=== PATIENT | male | born 1935 | race Caucasian/White ===

== ENCOUNTER 2017-12-23 15:57 | Observation (INO) | payer MEDICARE, BC ==
[~2017-12-23] VITALS: Ht 180.3 cm; Wt 99.0 kg
[2017-12-23] MEDS ORDERED: ONDANSETRON HCL INJ 2 MG/ML VIAL IV STA (16:40)
[2017-12-23] MEDS ORDERED: SODIUM CHLORIDE 0.9% 1000ML 1,000 ML IV STA (16:40)
[2017-12-23] MEDS ORDERED: MECLIZINE HCL 12.5 MG TAB PO ONE (16:45)
--- NOTE | 2017-12-23 17:34 | Diagnostic Imaging Report ---
PROCEDURE: A single AP view of the chest. COMPARISON: None. INDICATIONS: DIZZINESS FINDINGS: Lines/tubes: None. Lungs: The lungs are well inflated and clear. There is no evidence of pneumonia or pulmonary edema. Pleura: There is no pleural effusion or pneumothorax. Heart and mediastinum: The heart and the mediastinum are unremarkable. Bones: No acute bony abnormality. IMPRESSION: No acute cardiopulmonary disease. Dictated by: Omar Villa M.D. on 12/23/2017 at 17:33 Electronically approved by: Omar Villa M.D. on 12/23/2017 at 17:33
--- NOTE | 2017-12-23 17:37 | Diagnostic Imaging Report ---
History:Vomiting, nausea Comparison studies:None Technique: Axial images were obtained from the skull base to the vertex. Coronal and sagittal images reconstructed from the axial data. Intravenous contrast: None Findings: Scalp/skull: No abnormalities. Extra-axial spaces: No masses. No fluid collections. Brain sulci: Mildly prominent. Ventricles: Mild compensatory dilatation. No hydrocephalus. Parenchyma: A few bilateral hypodensities in the supratentorial white matter are small vessel ischemic changes. No masses, hemorrhage, acute or chronic cortical vascular insults. Sellar/suprasellar region: No abnormalities. Craniocervical junction: Patent foramen magnum. No Chiari one malformation. Incidental findings: Atherosclerotic calcifications in the carotid siphons Bilateral punctate senile calcifications in the globes. Impression: No acute abnormalities. Chronic findings: 1. Mild generalized volume loss. 2. Mild supratentorial white matter small vessel ischemic changes. Preliminary report provided by Dr. uLis Thakur Final report by Dr Roper on 12/23/2014 at 2040 hours. Signed by: Dr. Jarrell Roper M.D. on 12/23/2017 8:42 PM
[2017-12-23 18:51] LABS: BASOPHILS # (AUTO) 0.1 (0.0-0.1); BASOPHILS % 0.6 % (0.0-1.0); EOSINOPHILS # (AUTO) 0.1 (0.0-0.4); EOSINOPHILS % 0.7 % (0.0-6.0); HEMATOCRIT 44.5 % (38.2-49.6); HEMOGLOBIN 14.6 g/dL (14.0-18.0); LYMPHOCYTES % 11.3 % (18.0-39.1); MEAN CORPUSCULAR HEMOGLOBIN 31.7 pg (28-32); MEAN CORPUSCULAR HGB CONC 32.8 g/dL (31-35); MEAN CORPUSCULAR VOLUME 96.7 fL (81-99); MONOCYTES # (AUTO) 0.7 (0.2-0.8); MONOCYTES % 8.1 % (4.4-11.3); NEUTROPHILS # (AUTO) 6.9 (2.1-6.9); NEUTROPHILS % 78.7 % (38.7-80.0); PLATELET COUNT 163 x10e3/uL (140-360)
[2017-12-23 18:58] LABS: INR 1.16; PROTHROMBIN TIME 13.9 seconds (11.9-14.5)
[2017-12-23 19:05] LABS: ALANINE AMINOTRANSFERASE 12 IU/L (0-55); ALBUMIN 3.7 g/dL (3.5-5.0); ALKALINE PHOSPHATASE 73 IU/L (40-150); ANION GAP 14.5 mmol/L (8-16); BLOOD UREA NITROGEN 13 mg/dL (7-26); BUN/CREATININE RATIO 15 (6-25); CALCIUM 8.9 mg/dL (8.4-10.2); CARBON DIOXIDE 25 mmol/L (22-29); CHLORIDE 106 mmol/L (98-107); CREATINE KINASE 84 IU/L (30-200); CREATININE, SERUM 0.87 mg/dL (0.72-1.25); EST GLOMERULAR FILTRATION RATE > 60 ML/MIN (60-); GLUCOSE 112 mg/dL (74-118); POTASSIUM 3.5 mmol/L (3.5-5.1); SODIUM 142 mmol/L (136-145)
[2017-12-23 19:26] LABS: BILIRUBIN,URINE NEGATIVE (NEGATIVE); CLARITY,URINE CLEAR (CLEAR); COLOR,URINE YELLOW (YELLOW); KETONES,URINE 1+ (NEGATIVE); LEUKOCYTE ESTERASE ,URINE NEGATIVE (NEGATIVE); NITRITE,URINE NEGATIVE (NEGATIVE); PROTEIN,URINE DIPSTICK NEGATIVE (NEGATIVE); URINE UROBILINOGEN 0.2 mg/dL (0.2 - 1)
[2017-12-23] MEDS: SODIUM CHLORIDE 0.9% 1000ML 1,000 ML IV SCH (19:26)
[2017-12-23] MEDS ORDERED: ZYRTEC10 M3 PO (19:27)
--- OUTSIDE RECORDS SUMMARY | 2017-12-23 19:49 | XMS REPORT ---
Author Author [facility] Address Unknown Phone Unavailable Care Team Providers Care Pain Coordinator Name Role Phone JUSTYN SHAFFER Unavailable Unavailable Problems This patient has no known problems. Allergies, Adverse Reactions, Alerts This patient has no known allergies or adverse reactions. Medications This patient has no known medications. Results Test Description Test Time Test Comments Text Results Atomic Results Result Comments CHEST SINGLE (PORTABLE) [place] [address] Patient Name: SRI SALGADO MR #: [id number] : 1935 Age/Sex: 82/M Req #: [id number] Adm Physician: Ordered by: ALEXIS ROTHMAN INSTRUMENT INSPECTOR Report #: [id number] Location: ER Room/Bed: Procedure: [id number] DX/CHEST SINGLE (PORTABLE) Exam Date: 12/23/17 Exam Time: 1650 REPORT STATUS: Signed PROCEDURE: A single AP view of the chest. COMPARISON: None. INDICATIONS: DIZZINESS FINDINGS: Lines/tubes: None. Lungs: The lungs are well inflated and clear. There is no evidence of pneumonia or pulmonary edema. Pleura: There is no pleural effusion or pneumothorax. Heart and mediastinum: The heart and the mediastinum are unremarkable. Bones: No acute bony abnormality. IMPRESSION: No acute cardiopulmonary disease. Dictated by: Omar Delgadillo M.D. on 12/23/2017 at 17:33 Electronically approved by: Omar Delgadillo M.D. on 12/23/2017 at 17:33 Dictated By: OMAR DELGADILLO MD 173 Transcribed By: KYLE on 12/23/171732 COPY TO: ALEXIS ROTHMAN NP
[2017-12-23 20:08] VITALS: BP 177/79
[2017-12-23 20:12] LABS: EPITHELIAL CELLS,URINE RARE /LPF
[2017-12-23 20:13] LABS: MUCUS,URINE FEW (RARE); RBC,URINE 0-5 /HPF (0-5); WBC,URINE (MAN) 0-5 /HPF (0-5)
[2017-12-23 20:30] VITALS: BP 177/79
[2017-12-24] VITALS (8 sets, daily range): BP systolic 122–147; BP diastolic 65–76
[2017-12-24] MEDS: SODIUM CHLORIDE 0.9% 1000ML 1,000 ML IV SCH ×2 (04:04→11:03)
--- NOTE | 2017-12-24 08:03 | History and Physical ---
PRIMARY CARE PHYSICIAN: Dr. Skinner CHIEF COMPLAINT: Dizziness and tingling in fingers. HISTORY OF PRESENT ILLNESS: An 82-year-old man with no medical history, now waking up at 2 a.m. on Thursday morning with symptoms of tingling in his right hand fingers and right foot toes. He got out of bed. While walking, he had to hold onto the wall for balance. Therefore, he came to the hospital for further evaluation and management. Denies any history of heart attack, stroke, or any other medical problems. Patient does admit that the room was spinning when his opened his eyes, but when he closes his eyes, it resolved. PAST MEDICAL HISTORY: None. PAST SURGICAL HISTORY: None. ALLERGIES: PER ELECTRONIC MEDICAL RECORD. FAMILY HISTORY/SOCIAL HISTORY: Patient is . He has 2 children. No alcohol, illicits, or cigarettes. MEDICATIONS: Per electronic medical record. REVIEW OF SYSTEMS: Denies any dizziness, chest pain. PHYSICAL EXAMINATION: VITAL SIGNS: Have been reviewed. GENERAL APPEARANCE: Tired-appearing man resting in bed. HEENT: Anicteric. Pupils respond to light. No oral lesions. CARDIOVASCULAR: Normal S1 and S2. LUNGS: Moderate breath sounds. ABDOMEN: Soft, nontender, nondistended. EXTREMITIES: No edema or calf tenderness. NEUROLOGICAL: He is alert and oriented x3. He moves all extremities. His cranial nerves II through XII are intact. SKIN: Dry. PSYCHIATRIC: Normal affect. LABS: Reviewed. MEDICATIONS: Reviewed. ASSESSMENT AND PLAN: This is an 82-year-old man. 1. Dizziness. This is vertigo related based on his description. Will continue meclizine benign paroxysmal positional vertigo. 2. Abnormal electrocardiogram. Patient did have some tingling in his hand and foot, and he has abnormal electrocardiogram with T-wave inversions. Will obtain 2-dimensional echocardiogram and consult cardiology. Will also obtain a thyroid-stimulating hormone. 3. Elevated blood pressure. He states that he does not have a history of hypertension, but blood pressure has been elevated here. We may need to treat. 4. Overweight state. His body mass index is 29.3. Will obtain a lipid panel. His glucose was 112, which was normal. 5. Allergic rhinitis. Continue loratadine. 6. Prophylaxis. Will use Lovenox and Pepcid. 7. Disposition. Follow up cardiology recommendation. May benefit from an magnetic resonance imaging of the brain, but will reassess patient later today, and will determine if this is appropriate. Job#: [id number]
[2017-12-24] MEDS: FAMOTIDINE 20 MG TAB PO SCH ×2 (08:19→16:16)
[2017-12-24] MEDS: LORATADINE 10 MG TAB PO SCH (08:19)
[2017-12-24 09:27] LABS: CHOL/HDL RATIO 3.5 (3.9-4.7)
--- NOTE | 2017-12-24 11:54 | Consultation ---
DATE OF CONSULTATION: December 24, 2017 ATTENDING PHYSICIAN: Dr. Christianson Thank you so much for asking me to see this nice man in consultation. 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 Had some dizziness as well and initially had some nausea and vomiting which has resolved; however, the finger and toe symptoms persist. PAST MEDICAL HISTORY: Relatively insignificant. Patient has been amazingly healthy throughout his life. 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 SOCIAL HISTORY: Does not smoke or drink. FAMILY HISTORY: Negative. REVIEW OF SYSTEMS: CARDIAC: Patient reports he did have a cardiac evaluation around 2009 that was unrevealing including a stress test. Previous community screening in July 2016 showed left bundle-branch block present at the time with some carotid plaquing. She had no chest pain or palpitations or ankle swelling. PHYSICAL EXAMINATION: GENERAL: A pleasant alert white man who is comfortable. He reports he still has tingling of his right fingers and toes. HEENT: Unremarkable. NECK: No jugular venous distention. No bruits. HEART: S1, S2 are equal. A faint 1/6 systolic murmur to the left sternal border. LUNGS: Clear. ABDOMEN: Protuberant. Normal bowel sounds. EXTREMITIES: No cyanosis, clubbing, or edema. Distal pulses are all 2+/2+. LABORATORY STUDIES: EKG shows sinus rhythm with left bundle-branch block. Sed rate is 15 with normal being 13. His BNP is 265, cholesterol 159, HDL 45, and LDL 97. CAT scan of the head shows some wasting. Chest x-ray is relatively unremarkable. ASSESSMENT 1. Neurologic symptoms of the fingers and toes, etiology not clear. 2. Left bundle-branch block present at least since July of 2016. 3. Abnormal BNP with faint murmur. PLAN: We will check carotid Doppler scan, echocardiogram, and Lexiscan Myoview. We will follow him closely with you. Thank you for asking to see him in consultation. Job#: [id number] SAK
[2017-12-24] MEDS ORDERED: CYCLOBENZAPRINE HCL 10 MG TAB PO SCH (14:00)
[2017-12-24] MEDS: MECLIZINE HCL 12.5 MG TAB PO SCH ×2 (14:25→21:50)
[2017-12-24] MEDS: ENOXAPARIN SOD INJ 40 MG/0.4 ML SYR SC SCH (16:16)
[2017-12-25 00:44] VITALS: BP 150/70
[2017-12-25 04:00] VITALS: BP 139/73
[2017-12-25] MEDS: MECLIZINE HCL 12.5 MG TAB PO SCH ×3 (06:00→21:02)
[2017-12-25] MEDS: FAMOTIDINE 20 MG TAB PO SCH ×2 (07:30→17:30)
[2017-12-25 07:55] VITALS: BP 145/83
[2017-12-25 08:04] LABS: BASOPHILS # (AUTO) 0.1 (0.0-0.1); BASOPHILS % 1.1 % (0.0-1.0); EOSINOPHILS # (AUTO) 0.3 (0.0-0.4); EOSINOPHILS % 4.9 % (0.0-6.0); HEMATOCRIT 43.9 % (38.2-49.6); HEMOGLOBIN 14.4 g/dL (14.0-18.0); LYMPHOCYTES # (AUTO) 1.5 (1.0-3.2); MEAN CORPUSCULAR HEMOGLOBIN 31.7 pg (28-32); MEAN CORPUSCULAR HGB CONC 32.8 g/dL (31-35); MEAN CORPUSCULAR VOLUME 96.7 fL (81-99); MONOCYTES # (AUTO) 0.7 (0.2-0.8); MONOCYTES % 10.2 % (4.4-11.3); NEUTROPHILS # (AUTO) 3.8 (2.1-6.9); NEUTROPHILS % 59.6 % (38.7-80.0); PLATELET COUNT 148 x10e3/uL (140-360); RED BLOOD COUNT 4.54 x10e6/uL (4.3-5.7); RED CELL DISTRIBUTION WIDTH 15.5 % (11.7-14.4)
[2017-12-25 08:26] LABS: ANION GAP 10.6 mmol/L (8-16); BLOOD UREA NITROGEN 12 mg/dL (7-26); BUN/CREATININE RATIO 13 (6-25); CARBON DIOXIDE 26 mmol/L (22-29); CHLORIDE 109 mmol/L (98-107); CREATININE, SERUM 0.93 mg/dL (0.72-1.25); EST GLOMERULAR FILTRATION RATE > 60 ML/MIN (60-); GLUCOSE 92 mg/dL (74-118); POTASSIUM 3.6 mmol/L (3.5-5.1); SODIUM 142 mmol/L (136-145)
[2017-12-25] MEDS ORDERED: REGADENOSON 0.4 MG/5 ML SYR IV ONE (08:43)
[2017-12-25] MEDS: LORATADINE 10 MG TAB PO SCH (09:00)
[2017-12-25 09:27] VITALS: BP 145/83
--- NOTE | 2017-12-25 13:10 | Diagnostic Imaging Report ---
EXAMINATION: MRI of the brain without contrast. HISTORY: Dizziness, ataxia, right hand and leg numbness, difficulty swallowing COMPARISON: Head CT on 12/23/2017 TECHNIQUE: Sagittal T2; axial DWI, T2, FLAIR, T1-IR, T2 gradient echo; coronal FLAIR. IMAGE QUALITY: Adequate. FINDINGS: Parenchyma: 1. Linear DWI, T2 and FLAIR hyperintense line along the midline at the bulbomedullary junction likely corresponds to acute ischemia. 2. Few scattered white matter T2 and FLAIR hyperintense foci, most likely nonspecific chronic microvascular ischemic changes. 3. No mass, hemorrhage, acute or chronic infarcts. Skull: Unremarkable. Vessels: Expected flow voids present in the major arteries and dural sinuses. Extra-axial spaces: No abnormal signal intensity or mass effect. Brain volume: Within normal limits for age. Ventricles: No hydrocephalus or displacement. Foramen magnum: Unremarkable. Sella: Unremarkable. Paranasal / mastoid sinuses: No significant inflammatory disease. IMPRESSION: 1. 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 2. Mild chronic microvascular ischemic changes. Signed by: Dr. Lawanda Pickens M.D. on 12/25/2017 1:07 PM
--- NOTE | 2017-12-25 16:11 | Consultation ---
DATE OF CONSULTATION: December 25, 2017, about 3 p.m. NEUROLOGICAL CONSULTATION A patient of Dr. Bola Christianson. REASON FOR CONSULTATION: Episode of dizziness. HISTORY OF PRESENT ILLNESS: This 82-year-old male has been in excellent health and taking no medication, never been hospitalized. Last Thursday night he had an episode of sudden spinning sensation associated with loss of balance, nausea, vomiting. He describes some difficulty focusing, numbness of the fingers of the right hand and the toes of the right foot. The following day he was still having some dizziness and spinning but not as much as he had at the beginning. He still had some trouble, walking in little steps according to his . There was no diplopia. There was no ringing of the ears. The following day on Thursday, he had an episode of difficulty swallowing, reason for which they brought him to the hospital to the emergency room. At the present time, the patient is doing better. He is still having a little unsteady gait. He denies any headaches. He denies any chest pain. No palpitation. No facial paresthesia. No paresthesia of the lips, tongue. No focal weakness or focal paresthesia. He said it was just the fingers of the right hand and the toes on the right foot. The patient has been seen by parking enforcement officer. PAST HISTORY: Unremarkable. SURGICAL HISTORY: Unremarkable. SOCIAL HISTORY: He is . He does not smoke or drink. He has been at home with no medication. REVIEW OF SYSTEMS: At the time no chest pain, no headache, no dizziness, no trouble swallowing. GENERAL PHYSICAL EXAMINATION VITAL SIGNS: Blood pressure today was 145/83. Pulse was 64. He was afebrile. LUNGS: Clear to auscultation. HEART: Regular sinus rhythm. No murmur. ABDOMEN: Soft. No organomegaly. No tenderness. MUSCULOSKELETAL: Lower extremities no edema, no cyanosis, no clubbing. No back or neck pain. NEUROLOGIC Mental status: He is alert, cooperative. Speech is clear. No dysarthria. No dysphagia. He is oriented x3. Cranial nerves: Pupils were both equal and reactive. External ocular movements were full. Visual field on confrontation was grossly normal. Facial sensation was normal. No facial weakness. Tongue protrudes midline. Palatal movements normal. Motor power: He is able to elevate arms and legs against gravity without any difficulty. Upper extremity muscle strength: Abduction of the arms 5/5. Flexion and extension of the arms 5/5. Dorsiflexion of both wrists 5/5. Finger extension 5/5 bilaterally. Hand belt machine operator 5/5 bilaterally. Lower extremity: Straight raising leg 70 degrees without any difficulty. Flexion of the hips 5/5, flexion and extension of the knees 5/5, dorsiflexion of the ankles 5/5. Deep tendon reflexes: Triceps, biceps, radials 1+. Knee jerks 1+. Ankle jerks were absent bilaterally. Plantar stimulation is down bilaterally. Coordination: [id number] has terminal unsteadiness in the right side and normal on the left side. Gait: Broad-based, unsteady. Romberg test positive. HEAD: Normocephalic. NECK: Supple. Carotid pulsations were present bilaterally. There were no bruits. LABORATORY WORKUP: CBC shows a white count of 6300 with a hemoglobin 14.4, hematocrit 43.9, platelets 148,000. Chemistry: Sodium, potassium, chloride were all normal. BUN was 12, the creatinine 0.93. Liver enzymes are normal. Lipid profile is normal. TSH is normal. Urinalysis is negative. A CT scan of the brain done in the emergency room did not show any acute pathology. There was some chronic generalized volume loss and a small amount of white matter disease bilaterally. MRI of the brain shows an acute small stroke in the midline at the bulbo-medullary junction. Carotid Doppler has been done. There is chronic flow impairment. Echocardiogram report is pending. RECOMMENDATION: CT angiogram of the neck and head. The patient and his were explained in detail about this is not a TIA; this is an actual acute stroke which is small in the area which causes vertigo, paresthesia and loss of balance. As soon as we have the CT angiogram, then we will discuss with the patient and the family and the attending physician for further options. In the meantime, continue with Lovenox and control of the blood pressure. Job#: [id number] ROXANN
[2017-12-25] MEDS: ENOXAPARIN SOD INJ 40 MG/0.4 ML SYR SC SCH (17:30)
--- NOTE | 2017-12-25 17:50 | Diagnostic Imaging Report ---
EXAMINATION: CT angiogram of the [place] and neck with contrast CLINICAL HISTORY: Dizziness , imbalance, stroke. COMPARISON: None available TECHNIQUE: The head and neck was scanned utilizing a multidetector helical scanner from the thoracic inlet to the vertex after the I.V contrast administration of 100 mL of Omnipaque 300 mg . Multiplanar sagittal and coronal reconstructions were performed as well. FINDINGS: The are no areas of abnormal density or enhancement in the brain. There is no mass, hemorrhage or extra-axial fluid collection. The CSF containing spaces are normal in size, position and configuration. CT ANGIOGRAM OF THE [place]: The internal carotid artery segments as well as the middle cerebral and anterior cerebral arteries are normal in caliber. The vertebro-basilar circulation is normal. No vascular malformation or aneurysmal dilatation is seen. The draining venous structures are normal and patent. Anatomic variation: Anterior Communicating Artery: Patent Posterior Communicating Arteries: Not visualized Vertebral arteries: Codominant CT ANGIOGRAM OF THE NECK: If present, stenosis of the carotid bulbs is measured based on NASCET criteria i.e area of maximum stenosis compared to the cervical ICA distal to the bulb. The origin of the vessels is patent bilaterally. Carotid bulbs: Minimal calcified atherosclerotic plaque in the left carotid bifurcation and carotid bulb without associated stenoses(0%). Right Carotid Artery: The common carotid, internal and external carotid arteries at the level of the neck are normal in caliber, and patent, no evidence of stenoses. Left carotid artery: The common carotid, internal and external carotid arteries at the level of the neck are normal in caliber, and patent, no evidence of stenoses. Vertebral Arteries: Both are normal in morphology and caliber. Both are codominant. No significant stenosis is seen. IMPRESSION: Unremarkable CT angiogram of the [place] and neck. Signed by: Dr. Lawanda Pickens M.D. on 12/25/2017 5:47 PM
--- NOTE | 2017-12-25 17:50 | Diagnostic Imaging Report ---
EXAMINATION: CT angiogram of the [place] and neck with contrast CLINICAL HISTORY: Dizziness , imbalance, stroke. COMPARISON: None available TECHNIQUE: The head and neck was scanned utilizing a multidetector helical scanner from the thoracic inlet to the vertex after the I.V contrast administration of 100 mL of Omnipaque 300 mg . Multiplanar sagittal and coronal reconstructions were performed as well. FINDINGS: The are no areas of abnormal density or enhancement in the brain. There is no mass, hemorrhage or extra-axial fluid collection. The CSF containing spaces are normal in size, position and configuration. CT ANGIOGRAM OF THE [place]: The internal carotid artery segments as well as the middle cerebral and anterior cerebral arteries are normal in caliber. The vertebro-basilar circulation is normal. No vascular malformation or aneurysmal dilatation is seen. The draining venous structures are normal and patent. Anatomic variation: Anterior Communicating Artery: Patent Posterior Communicating Arteries: Not visualized Vertebral arteries: Codominant CT ANGIOGRAM OF THE NECK: If present, stenosis of the carotid bulbs is measured based on NASCET criteria i.e area of maximum stenosis compared to the cervical ICA distal to the bulb. The origin of the vessels is patent bilaterally. Carotid bulbs: Minimal calcified atherosclerotic plaque in the left carotid bifurcation and carotid bulb without associated stenoses(0%). Right Carotid Artery: The common carotid, internal and external carotid arteries at the level of the neck are normal in caliber, and patent, no evidence of stenoses. Left carotid artery: The common carotid, internal and external carotid arteries at the level of the neck are normal in caliber, and patent, no evidence of stenoses. Vertebral Arteries: Both are normal in morphology and caliber. Both are codominant. No significant stenosis is seen. IMPRESSION: Unremarkable CT angiogram of the [place] and neck. Signed by: Dr. Lawanda Pickens M.D. on 12/25/2017 5:47 PM
[2017-12-25 20:00] VITALS: BP 158/78
--- NOTE | 2017-12-25 20:16 | Cardiology Report ---
DATE OF STUDY: December 25, 2017 LEXISCAN MYOVIEW The patient had resting perfusion images after an injection of 11 mCi of technetium 99 and Myoview. Later due to an inability to exercise, the patient was given 0.4 mg of Lexiscan intravenously. Shortly afterwards, 31.9 mCi of technetium 99 and Myoview. Perfusion images were taken by rotational tomography. Comparison of resting and Lexiscan stress images show no significant evidence of any perfusion defect. Uptake is smooth and regular. Additionally, gated wall motion images were obtained and calculated ejection fraction, although borderline of 47% suggests normal left ventricular function. FINAL IMPRESSION 1. Normal Lexiscan Myoview perfusion. 2. Normal left ventricular function with calculated ejection fraction of 47%. Job#: [id number] CY
[2017-12-25 21:02] VITALS: BP 158/78
[2017-12-25] MEDS ORDERED: IOPAMIDOL 370 MG/ML 200 ML INFUS..BTL INJ ONE (22:34)
[2017-12-25] MEDS ORDERED: SODIUM CHLORIDE 0.9% 50ML 50 ML ONE (22:34)
[2017-12-26] VITALS (7 sets, daily range): BP systolic 139–164; BP diastolic 65–94
[2017-12-26] MEDS: MECLIZINE HCL 12.5 MG TAB PO SCH ×2 (06:12→14:00)
[2017-12-26 07:18] LABS: BASOPHILS # (AUTO) 0.1 (0.0-0.1); EOSINOPHILS # (AUTO) 0.4 (0.0-0.4); EOSINOPHILS % 5.8 % (0.0-6.0); HEMATOCRIT 41.7 % (38.2-49.6); HEMOGLOBIN 13.9 g/dL (14.0-18.0); LYMPHOCYTES # (AUTO) 1.6 (1.0-3.2); LYMPHOCYTES % 25.2 % (18.0-39.1); MEAN CORPUSCULAR HEMOGLOBIN 31.9 pg (28-32); MEAN CORPUSCULAR HGB CONC 33.3 g/dL (31-35); MEAN CORPUSCULAR VOLUME 95.6 fL (81-99); MONOCYTES # (AUTO) 0.5 (0.2-0.8); MONOCYTES % 8.7 % (4.4-11.3); NEUTROPHILS # (AUTO) 3.6 (2.1-6.9); PLATELET COUNT 149 x10e3/uL (140-360); RED BLOOD COUNT 4.36 x10e6/uL (4.3-5.7); RED CELL DISTRIBUTION WIDTH 15.1 % (11.7-14.4)
[2017-12-26] MEDS ORDERED: HYDRALAZINE HCL 20 MG/ML VIAL IV PRN (08:00)
[2017-12-26 08:01] LABS: ANION GAP 12.3 mmol/L (8-16); BLOOD UREA NITROGEN 11 mg/dL (7-26); BUN/CREATININE RATIO 13 (6-25); CALCIUM 8.3 mg/dL (8.4-10.2); CARBON DIOXIDE 26 mmol/L (22-29); CHLORIDE 108 mmol/L (98-107); CREATININE, SERUM 0.88 mg/dL (0.72-1.25); EST GLOMERULAR FILTRATION RATE > 60 ML/MIN (60-); GLUCOSE 85 mg/dL (74-118); POTASSIUM 3.3 mmol/L (3.5-5.1); SODIUM 143 mmol/L (136-145)
[2017-12-26] MEDS ORDERED: POTASSIUM CHLORIDE 10 MEQ TABCR ONE (08:22)
[2017-12-26] MEDS: LORATADINE 10 MG TAB PO SCH (08:28)
[2017-12-26] MEDS: FAMOTIDINE 20 MG TAB PO SCH (08:28)
[2017-12-26] MEDS ORDERED: POTASSIUM CHLORIDE 20 MEQ TAB CR PO ONE (09:00)
[2017-12-26] MEDS ORDERED: AMLODIPINE BESY10 MG PO (10:13)
[2017-12-26] MEDS ORDERED: CLOPIDOGREL75 MG PO (10:13)
[2017-12-26] MEDS ORDERED: ASPIRIN CHEW81 MG PO (10:13)
[2017-12-26] MEDS ORDERED: AMLODIPINE BESYLATE 10 MG TAB PO ONE (10:30)
--- NOTE | 2017-12-27 11:10 | Discharge Summary ---
ADMISSION DIAGNOSES 1. Dizziness. 2. Abnormal electrocardiogram. 3. Elevated blood pressure. 4. Overweight. 5. Allergic rhinitis. DISCHARGE DIAGNOSES 1. Dizziness. 2. Abnormal electrocardiogram. 3. Elevated blood pressure. 4. Overweight. 5. Allergic rhinitis. 6. Hypokalemia. 7. Acute stroke. HISTORY: Patient has no medical history with no surgical history, and takes no chronic medications. HOSPITAL COURSE: An 82-year-old male with no medical history woke up at about 2 a.m. with symptoms of tingling in his right hand, fingers and right foot toes. He got out of bed and realized that he needed to hold on to the wall for balance. Therefore, he came to the hospital for evaluation. He admits that the room was spinning when he opened his eyes, but when he closes his eyes it resolved. The patient was started on meclizine. On admission, EKG showed T-wave inversion. Cardiology was consulted. Neurology was also consulted after the dizziness did not go away with meclizine. Blood pressure was elevated, although the patient does not have a history of hypertension. The patient was sent home with blood pressure medication. Cardiology check carotid Dopplers, which showed no significant plaque per cardiology report. A Lexiscan stress test, which was negative. Patient had a CT of the brain, which did not show any acute pathology. MRI of the brain showed an acute small stroke in the midline of the bulbar medullary junction. Neurology ordered a CTA of the head and neck. CTA showed nothing and was unremarkable. EF was found to be 47% via stress test. Chest x-ray was negative. Urine culture negative. The tingling in the right hand and right foot continued, but the dizziness resolved. Patient only had issues with ataxia at the time of discharge. Per neurology, he was sent home with Plavix, aspirin and blood pressure medication. Patient has a walker at home and lives with the . Patient will follow up with neurology in 1-2 weeks, and cardiology as needed along with primary care in 1 week. DICTATED BY WESLEY MEDINA NP RACHEL TRAORE MD Job#: [id number] HUNTER
== END 2017-12-26 15:01 | disposition home or self-care (01) ==
LOC: ER 15:57 → MED/SURG 19:47
PROVIDERS: ADMIT Internal Medicine; ATTEND Internal Medicine
DX: I63.8 Other cerebral infarction (principal); R94.31 Abnormal electrocardiogram [ECG] [EKG]; R20.2 Paresthesia of skin; R03.0 Elevated blood-pressure reading, without diagnosis of hypertension; E66.9 Obesity, unspecified; J30.9 Allergic rhinitis, unspecified; I44.7 Left bundle-branch block, unspecified; E87.6 Hypokalemia; Z68.30 Body mass index [BMI] 30.0-30.9, adult
CPT/HCPCS: 36415 ×4; 70450; 70496; 70498; 70551; 71045; 78452; 80048 ×2; 80053; 80061; 81001; 82550; 82553; 83735 ×2; 83880; 84443; 84484; 85025 ×3; 85610; 85651; 85730; 87086; 93005 ×2; 93017; 93306; 93880; 97110; 97116 ×3; 97161; 99284; A9502; G0378 ×4; J1650 ×2; J2405; J7030 ×2; Q9967